=== PATIENT | female | born 1945 | race Caucasian/White ===

== ENCOUNTER 2017-06-23 10:51 | Inpatient (IN) | payer MEDICARE, BC ==
[~2017-06-23] VITALS: Ht 165.1 cm; Wt 120.0 kg
[~2017-06-23 10:51] MED LIST: ALPR-624 PO; ATEN-169 PO; ATOR10TA PO; DOCU-28 PO; DULO-31 PO; FENT-93 TD; HYDR-565 PO; LEVO50TA PO; MELO-100 PO; METF500T PO; MIC100VS VG; MORP30TA PO; MULT-1179 PO; OMEP20CA4 PO; POLY17PO10 PO; PRE5T PO; VITC500T PO; ZIN220C PO
[2017-06-23] MEDS ORDERED: acetaminophen 325mg tablet PO STA (11:35)
[2017-06-23 12:10] LABS: BASOPHILS % (AUTO) 0.1 % (0-1); EOSINOPHILS # (AUTO) 0.2 X10'3 (0-0.9); EOSINOPHILS % (AUTO) 2.4 % (0-6); HEMATOCRIT 32.3 % (35.0-45.0); HEMOGLOBIN 10.3 g/dl (12.0-16.0); LYMPHOCYTES # (AUTO) 0.9 X10'3 (1.1-4.8); LYMPHOCYTES % (AUTO) 11.1 % (21-51); MEAN CORPUSCULAR HEMOGLOBIN 26.7 PG (27.0-31.0); MEAN CORPUSCULAR VOLUME 83.4 FL (78-98); MEAN PLATELET VOLUME 7.2 FL (7.4-10.4); MONOCYTES # (AUTO) 0.9 X10'3 (0-0.9); MONOCYTES % (AUTO) 10.6 % (2-12); NEUTROPHILS # (AUTO) 6.1 X10'3 (1.8-7.7); NEUTROPHILS % (AUTO) 75.8 % (42-75); PLATELET COUNT 364 X10'3 (140-440); RED BLOOD COUNT 3.87 X10'6 (4.20-5.60); RED CELL DISTRIBUTION WIDTH 18.4 % (11.5-14.5); WHITE BLOOD COUNT 8.1 X10'3 (4.5-11.0)
[2017-06-23 12:21] LABS: INR 0.9 INR; PARTIAL THROMBOPLASTIN TIME 27 SECONDS (22-32); PROTHROMBIN TIME 9.8 SECONDS (9.0-12.0)
[2017-06-23 12:38] LABS: ALANINE AMINOTRANSFERASE 25 U/L (12-78); ALBUMIN 2.7 G/DL (3.4-5.0); ALBUMIN/GLOBULIN RATIO 0.5 (1.1-1.5); ALKALINE PHOSPHATASE 109 IU/L (46-116); ANION GAP 9 (8-16); ASPARTATE AMINO TRANSFERASE 15 U/L (10-37); BILIRUBIN,TOTAL 0.3 MG/DL (0.1-1.0); BLOOD UREA NITROGEN 33 MG/DL (7-18); BUN/CREATININE RATIO 30.8 (6.6-38.0); CALCIUM 10.1 MG/DL (8.5-10.1); CHLORIDE 103 MMOL/L (99-107); CREATININE 1.07 MG/DL (0.40-0.90); GLUCOSE 169 MG/DL (70-104); MAGNESIUM 2.3 MG/DL (1.5-2.4); POTASSIUM 4.7 MMOL/L (3.5-5.1); SODIUM 139 MMOL/L (135-145); eGFR 50 ML/MIN
[2017-06-23 12:59] LABS: CLARITY,URINE TURBID (Clear); COLOR,URINE YELLOW (Yellow); GLUCOSE, URINE NEGATIVE (Neg); KETONES,URINE NEGATIVE (Neg); LEUKOCYTE ESTERASE ,URINE LARGE (Neg); NITRITES, URINE NEGATIVE (Neg); OCCULT BLOOD,URINE LARGE (Neg); PH,URINE 6.5 (4.8-8.0); PROTEIN,URINE 100 mg/dl (Neg); UROBILINOGEN,URINE 0.2 E.U/dL (0.2-1.0)
[2017-06-23 13:05] LABS: UA COLLECTION TYPE STRAIGHT CATH
[2017-06-23] MEDS ORDERED: magnesium Cl slow-release 64mg tablet PO PRN (13:05)
[2017-06-23] MEDS ORDERED: mag hydrox/Alum hydrox/simeth 30ml oral suspension PO PRN (13:05)
[2017-06-23] MEDS ORDERED: magnesium hydroxide 30ml (MOM) UD suspension PO PRN (13:05)
[2017-06-23] MEDS ORDERED: glucagon, human recombinant 1mg kit SUBCUT PRN (13:05)
[2017-06-23] MEDS ORDERED: normal saline 1000ML IV soln IV ONE (13:05)
[2017-06-23] MEDS ORDERED: MESSAGE TO PHARMACY PO ONE (13:05)
[2017-06-23] MEDS ORDERED: acetaminophen 325mg tablet PO PRN (13:05)
[2017-06-23] MEDS ORDERED: HYDROcodone/acetaminophen 5mg/325mg tablet PO PRN (13:05)
[2017-06-23] MEDS ORDERED: potassium Cl 40MEQ/NS 500ml 500 ML IV PRN ×2 (13:05)
[2017-06-23] MEDS ORDERED: magnesium 4gm in 100ml NS 100 ML IV PRN (13:05)
[2017-06-23] MEDS ORDERED: magnesium 2GM in 50ml NS 50 ML IV PRN (13:05)
[2017-06-23] MEDS ORDERED: CefTRIAXone 2gm/D5W 50ml 50 ML IV ONE (13:05)
[2017-06-23] MEDS ORDERED: potassium Cl 20 mEq SR tablet PO PRN ×2 (13:05)
[2017-06-23] MEDS ORDERED: morphine 4 MG/ML inj SYRINge IV PRN (13:05)
[2017-06-23] MEDS ORDERED: dextrose 50%-water 50ml dispensing syringe IV PRN ×2 (13:05)
[2017-06-23] MEDS ORDERED: dextrose ORAL solution 15 GM/59 ML bottle PO PRN ×2 (13:05)
[2017-06-23 13:06] LABS: BACTERIA,URINE 2+ /HPF (Neg); RBC,URINE 50-100 /HPF (0-2); SQUAMOUS EPITHELIAL CELL,UR NONE SEEN /LPF (FEW); WBC CLUMPS,URINE MANY /HPF (NEGATIVE); WBC,URINE TNTC /HPF (0-4)
[2017-06-23] MEDS: normal saline 1000ml 1,000 ML IV SCH (15:21)
[2017-06-23] MEDS: HYDROcodone/acetaminophen 10/325mg tab PO PRN (15:23)
[2017-06-23] MEDS: docusate sod 100mg capsule PO SCH (20:24)
[2017-06-23] MEDS: duloxetine 30mg CAPSULE.DR PO SCH (20:24)
[2017-06-23] MEDS: zinc sulfate 220mg capsule PO SCH (20:24)
[2017-06-23] MEDS: insulin glargine (Lantus) pen - multi-dose SQ SCH (21:00)
[2017-06-24] MEDS: normal saline 1000ml 1,000 ML IV SCH ×2 (02:33→15:44)
[2017-06-24 06:15] LABS: BASOPHILS % (AUTO) 0.2 % (0-1); EOSINOPHILS # (AUTO) 0.1 X10'3 (0-0.9); EOSINOPHILS % (AUTO) 1.3 % (0-6); HEMOGLOBIN 9.7 g/dl (12.0-16.0); LYMPHOCYTES # (AUTO) 1.1 X10'3 (1.1-4.8); LYMPHOCYTES % (AUTO) 12.2 % (21-51); MEAN CORPUSCULAR HEMOGLOBIN 26.8 PG (27.0-31.0); MEAN CORPUSCULAR HGB CONC 32.5 % (33.0-36.5); MEAN CORPUSCULAR VOLUME 82.6 FL (78-98); MEAN PLATELET VOLUME 7.5 FL (7.4-10.4); MONOCYTES # (AUTO) 1.3 X10'3 (0-0.9); MONOCYTES % (AUTO) 14.9 % (2-12); NEUTROPHILS # (AUTO) 6.2 X10'3 (1.8-7.7); NEUTROPHILS % (AUTO) 71.4 % (42-75); PLATELET COUNT 303 X10'3 (140-440); RED BLOOD COUNT 3.63 X10'6 (4.20-5.60); RED CELL DISTRIBUTION WIDTH 18.5 % (11.5-14.5); WHITE BLOOD COUNT 8.7 X10'3 (4.5-11.0)
[2017-06-24 06:26] LABS: ALBUMIN 2.3 G/DL (3.4-5.0); ANION GAP 10 (8-16); BLOOD UREA NITROGEN 27 MG/DL (7-18); BUN/CREATININE RATIO 27.6 (6.6-38.0); CALCIUM 9.9 MG/DL (8.5-10.1); CHLORIDE 108 MMOL/L (99-107); CREATININE 0.98 MG/DL (0.40-0.90); GLUCOSE 154 MG/DL (70-104); MAGNESIUM 2.1 MG/DL (1.5-2.4); POTASSIUM 4.8 MMOL/L (3.5-5.1); SODIUM 143 MMOL/L (135-145); TOTAL CARBON DIOXIDE 25.5 MMOL/L (24-32); eGFR 56 ML/MIN
[2017-06-24 07:37] VITALS: BP 142/75
[2017-06-24] MEDS ORDERED: enoxaparin 30mg/0.3ml syringe SUBCUT SCH (08:00)
[2017-06-24] MEDS: K and/or MAG REPLACEMENT MC SCH (08:00)
[2017-06-24] MEDS: atenolol 50mg tablet PO SCH (08:23)
[2017-06-24] MEDS: CefTRIAXone/D5W-Rocephin 1gm 50 ML IV SCH (08:23)
[2017-06-24] MEDS: multivitamins, therapeutics tablet PO SCH (08:24)
[2017-06-24] MEDS: pantoprazole 40mg Tablet.DR PO SCH (08:24)
[2017-06-24] MEDS: atorvastatin 10mg tablet PO SCH (08:24)
[2017-06-24] MEDS: duloxetine 30mg CAPSULE.DR PO SCH ×2 (08:24→20:30)
[2017-06-24] MEDS: ascorbic acid 500mg tablet PO SCH (08:24)
[2017-06-24] MEDS: docusate sod 100mg capsule PO SCH ×2 (08:24→20:29)
[2017-06-24] MEDS: levoTHYROXINE 100mcg tablet PO SCH (08:30)
[2017-06-24] MEDS: predniSONE 5mg tablet PO SCH (09:12)
[2017-06-24] MEDS: zinc sulfate 220mg capsule PO SCH ×2 (09:12→20:30)
[2017-06-24] MEDS ORDERED: fentaNYL 100MCG/hour patch.TD72 TD SCH (10:57)
[2017-06-24] MEDS: HYDROcodone/acetaminophen 10/325mg tab PO PRN ×2 (13:00→18:53)
[2017-06-24] MEDS ORDERED: TRAZ-146 (15:12)
[2017-06-24] MEDS ORDERED: CRAN200C PO (15:12)
[2017-06-24] MEDS ORDERED: MORP15TA (15:12)
[2017-06-24] MEDS ORDERED: ERGO400C (15:14)
[2017-06-24] MEDS: insulin Lispro (HumaLOG) vial - multi-dose SQ SCH (19:35)
[2017-06-24 20:00] VITALS: BP 150/76
[2017-06-24] MEDS: lactobacillus rhamnosus 10,000 MMU CELLS/CAPSULE PO SCH (20:29)
[2017-06-24] MEDS: insulin glargine (Lantus) pen - multi-dose SQ SCH (20:42)
[2017-06-25] VITALS: BP 144/67
[2017-06-25] MEDS: HYDROcodone/acetaminophen 10/325mg tab PO PRN ×3 (01:20→20:28)
[2017-06-25] MEDS: ondansetron/PF 4mg/2ml inj IV PRN ×2 (01:20→21:42)
[2017-06-25] MEDS: normal saline 1000ml 1,000 ML IV SCH (03:07)
[2017-06-25 04:45] LABS: BASOPHILS % (AUTO) 0.3 % (0-1); EOSINOPHILS # (AUTO) 0.1 X10'3 (0-0.9); EOSINOPHILS % (AUTO) 1.2 % (0-6); HEMATOCRIT 26.5 % (35.0-45.0); HEMOGLOBIN 8.6 g/dl (12.0-16.0); LYMPHOCYTES # (AUTO) 1.1 X10'3 (1.1-4.8); LYMPHOCYTES % (AUTO) 12.7 % (21-51); MEAN CORPUSCULAR HEMOGLOBIN 26.6 PG (27.0-31.0); MEAN CORPUSCULAR HGB CONC 32.5 % (33.0-36.5); MEAN CORPUSCULAR VOLUME 81.8 FL (78-98); MEAN PLATELET VOLUME 7.3 FL (7.4-10.4); MONOCYTES # (AUTO) 1.1 X10'3 (0-0.9); MONOCYTES % (AUTO) 12.5 % (2-12); NEUTROPHILS # (AUTO) 6.4 X10'3 (1.8-7.7); NEUTROPHILS % (AUTO) 73.3 % (42-75); PLATELET COUNT 265 X10'3 (140-440); RED BLOOD COUNT 3.24 X10'6 (4.20-5.60); WHITE BLOOD COUNT 8.7 X10'3 (4.5-11.0)
[2017-06-25 05:07] LABS: ALBUMIN 2.1 G/DL (3.4-5.0); ANION GAP 8 (8-16); BLOOD UREA NITROGEN 19 MG/DL (7-18); BUN/CREATININE RATIO 21.8 (6.6-38.0); CALCIUM 9.4 MG/DL (8.5-10.1); CHLORIDE 108 MMOL/L (99-107); CREATININE 0.87 MG/DL (0.40-0.90); GLUCOSE 170 MG/DL (70-104); MAGNESIUM 1.7 MG/DL (1.5-2.4); SODIUM 141 MMOL/L (135-145); TOTAL CARBON DIOXIDE 25.3 MMOL/L (24-32); eGFR 64 ML/MIN
[2017-06-25] MEDS: levoTHYROXINE 100mcg tablet PO SCH (07:00)
[2017-06-25] MEDS: pantoprazole 40mg Tablet.DR PO SCH (07:30)
[2017-06-25 08:00] VITALS: BP 123/59
[2017-06-25] MEDS: K and/or MAG REPLACEMENT MC SCH (08:00)
[2017-06-25] MEDS ORDERED: enoxaparin 40mg/0.4ml syringe SUBCUT SCH (08:00)
[2017-06-25] MEDS: docusate sod 100mg capsule PO SCH ×2 (08:00→20:25)
[2017-06-25] MEDS: zinc sulfate 220mg capsule PO SCH ×2 (08:00→20:25)
[2017-06-25] MEDS: atenolol 50mg tablet PO SCH (08:00)
[2017-06-25] MEDS: atorvastatin 10mg tablet PO SCH (08:00)
[2017-06-25] MEDS: CefTRIAXone/D5W-Rocephin 1gm 50 ML IV SCH (08:00)
[2017-06-25] MEDS: duloxetine 30mg CAPSULE.DR PO SCH ×2 (08:00→20:25)
[2017-06-25] MEDS: multivitamins, therapeutics tablet PO SCH (08:00)
[2017-06-25] MEDS: lactobacillus rhamnosus 10,000 MMU CELLS/CAPSULE PO SCH ×2 (08:00→20:25)
[2017-06-25] MEDS: ascorbic acid 500mg tablet PO SCH (08:00)
[2017-06-25] MEDS ORDERED: pantoprazole 40 MG vial IV SCH (08:00)
[2017-06-25] MEDS: predniSONE 5mg tablet PO SCH (08:00)
[2017-06-25 11:00] VITALS: BP 121/59
[2017-06-25] MEDS: insulin Lispro (HumaLOG) vial - multi-dose SQ SCH (13:18)
[2017-06-25] MEDS ORDERED: iohexol 300mg/ml 100ml inj. ONE (14:15)
[2017-06-25 20:00] VITALS: BP 139/59
[2017-06-25] MEDS: insulin glargine (Lantus) pen - multi-dose SQ SCH (21:54)
[2017-06-26] VITALS: BP 144/56
[2017-06-26] MEDS: HYDROcodone/acetaminophen 10/325mg tab PO PRN ×3 (02:18→12:05)
[2017-06-26 05:13] LABS: BASOPHILS % (AUTO) 0.3 % (0-1); EOSINOPHILS # (AUTO) 0.2 X10'3 (0-0.9); EOSINOPHILS % (AUTO) 1.7 % (0-6); HEMATOCRIT 26.5 % (35.0-45.0); HEMOGLOBIN 8.4 g/dl (12.0-16.0); LYMPHOCYTES # (AUTO) 1.8 X10'3 (1.1-4.8); LYMPHOCYTES % (AUTO) 19.4 % (21-51); MEAN CORPUSCULAR HGB CONC 31.7 % (33.0-36.5); MEAN CORPUSCULAR VOLUME 82.1 FL (78-98); MEAN PLATELET VOLUME 7.2 FL (7.4-10.4); MONOCYTES # (AUTO) 1.2 X10'3 (0-0.9); MONOCYTES % (AUTO) 13.1 % (2-12); NEUTROPHILS % (AUTO) 65.5 % (42-75); PLATELET COUNT 275 X10'3 (140-440); RED BLOOD COUNT 3.23 X10'6 (4.20-5.60); RED CELL DISTRIBUTION WIDTH 18.3 % (11.5-14.5); WHITE BLOOD COUNT 9.1 X10'3 (4.5-11.0)
[2017-06-26 05:24] LABS: ALBUMIN 2.1 G/DL (3.4-5.0); ANION GAP 7 (8-16); BLOOD UREA NITROGEN 19 MG/DL (7-18); BUN/CREATININE RATIO 21.1 (6.6-38.0); CALCIUM 9.4 MG/DL (8.5-10.1); CHLORIDE 106 MMOL/L (99-107); GLUCOSE 140 MG/DL (70-104); MAGNESIUM 1.9 MG/DL (1.5-2.4); POTASSIUM 4.2 MMOL/L (3.5-5.1); SODIUM 140 MMOL/L (135-145); TOTAL CARBON DIOXIDE 27.3 MMOL/L (24-32); eGFR 61 ML/MIN
[2017-06-26] MEDS ORDERED: atenolol 25mg tablet PO SCH (07:22)
[2017-06-26] MEDS: CefTRIAXone/D5W-Rocephin 1gm 50 ML IV SCH (07:29)
[2017-06-26] MEDS: predniSONE 5mg tablet PO SCH (07:32)
[2017-06-26] MEDS: multivitamins, therapeutics tablet PO SCH (07:33)
[2017-06-26] MEDS: lactobacillus rhamnosus 10,000 MMU CELLS/CAPSULE PO SCH (07:33)
[2017-06-26] MEDS: docusate sod 100mg capsule PO SCH (07:33)
[2017-06-26] MEDS: duloxetine 30mg CAPSULE.DR PO SCH (07:33)
[2017-06-26] MEDS: levoTHYROXINE 100mcg tablet PO SCH (07:33)
[2017-06-26] MEDS: atorvastatin 10mg tablet PO SCH (07:34)
[2017-06-26] MEDS: pantoprazole 40mg Tablet.DR PO SCH (07:34)
[2017-06-26] MEDS: zinc sulfate 220mg capsule PO SCH (07:34)
[2017-06-26] MEDS: ascorbic acid 500mg tablet PO SCH (07:38)
[2017-06-26] MEDS: K and/or MAG REPLACEMENT MC SCH (07:40)
[2017-06-26 08:00] VITALS: BP 144/57
[2017-06-26] MEDS: insulin Lispro (HumaLOG) vial - multi-dose SQ SCH ×2 (08:45→13:18)
[2017-06-26 11:30] VITALS: BP 121/65
[2017-06-26 16:13] LABS: OCCULT BLOOD STOOL NEGATIVE (Neg)
[2017-06-26] MEDS ORDERED: LEVO750T21 PO (16:41)
== END 2017-06-26 16:20 | disposition home health service (06) | DRG 682 ==
LOC: ER 10:51 → ED HOLD 13:05 → EDBEDREQ 06-24 06:37 → SUR 3N 06-24 07:15
PROVIDERS: ADMIT Internal Medicine; ATTEND Nurse Practitioner Family
PROC: BW211ZZ Computerized Tomography (CT Scan) of Abdomen and Pelvis using Low Osmolar Contrast (ICD-10-PCS; principal; 2017-06-25)
DX: N17.0 Acute kidney failure with tubular necrosis (principal); E43 Unspecified severe protein-calorie malnutrition; G92 Toxic encephalopathy; N39.0 Urinary tract infection, site not specified; Z68.41 Body mass index [BMI] 40.0-44.9, adult; I11.0 Hypertensive heart disease with heart failure; M19.90 Unspecified osteoarthritis, unspecified site; K59.00 Constipation, unspecified; M21.372 Foot drop, left foot; M54.9 Dorsalgia, unspecified; E66.01 Morbid (severe) obesity due to excess calories; I50.9 Heart failure, unspecified; G89.4 Chronic pain syndrome; E88.09 Other disorders of plasma-protein metabolism, not elsewhere classified; B95.2 Enterococcus as the cause of diseases classified elsewhere; D64.9 Anemia, unspecified; M79.7 Fibromyalgia; Z90.710 Acquired absence of both cervix and uterus; Z88.1 Allergy status to other antibiotic agents; Z88.0 Allergy status to penicillin; Z88.8 Allergy status to other drugs, medicaments and biological substances; Z85.528 Personal history of other malignant neoplasm of kidney
CPT/HCPCS: 36415; 71045; 74177; 80048; 80053; 81001; 82272; 82948; 83036; 83605; 83735; 84145; 85025; 85610; 85730; 87040; 87070; 87077; 87088; 87186; 93005; 97161; 97530; 99285; A6213; J0696; J1650; J1815; J2270; J2405; J7030; J7512; Q9967

== ENCOUNTER 2018-01-04 08:28 | Inpatient (IN) | payer MEDICARE, BC ==
[~2018-01-04] VITALS: Ht 177.8 cm; Wt 113.6 kg
[~2018-01-04 08:28] MED LIST changes: +CRAN200C PO; +ERGO400C; -FENT-93 TD; +FENT1PAT13 TD; +HYDR-4353 PO; -HYDR-565 PO; +MORP15TA PO; -MORP30TA PO; +TRAZ-219
[2018-01-04 09:25] LABS: ABG BASE EXCESS 5.2 mmol/L (-2.0-3.0); ABG HCO3 34.5 mmol/L (22.0-26.0); ABG OXYGEN SATURATION 91.5 % (95-98); ABG PCO2 (T) 81.8 mmHg (32.0-45.0); ABG PH (T) 7.243 (7.350-7.450); ALLEN'S TEST Positive; FCOHb 0.9 % (0.5-1.5); FLOW 2 L/min; FMetHb 0.2 % (0.3-1.12); FO2Hb 90.5 % (94-100); TOTAL HEMOGLOBIN 10.7 G/dl (12.0-16.0)
[2018-01-04 09:29] LABS: BASOPHILS # (AUTO) 0.1 X10'3 (0-0.2); BASOPHILS % (AUTO) 0.6 % (0-1); EOSINOPHILS # (AUTO) 0.4 X10'3 (0-0.9); EOSINOPHILS % (AUTO) 3.8 % (0-6); HEMATOCRIT 32.4 % (35.0-45.0); LYMPHOCYTES # (AUTO) 2.5 X10'3 (1.1-4.8); LYMPHOCYTES % (AUTO) 24.7 % (21-51); MEAN CORPUSCULAR HEMOGLOBIN 23.1 PG (27.0-31.0); MEAN CORPUSCULAR VOLUME 74.7 FL (78-98); MEAN PLATELET VOLUME 7.7 FL (7.4-10.4); MONOCYTES # (AUTO) 0.6 X10'3 (0-0.9); MONOCYTES % (AUTO) 6.3 % (2-12); NEUTROPHILS # (AUTO) 6.7 X10'3 (1.8-7.7); NEUTROPHILS % (AUTO) 64.6 % (42-75); PLATELET COUNT 404 X10'3 (140-440); RED BLOOD COUNT 4.34 X10'6 (4.20-5.60); RED CELL DISTRIBUTION WIDTH 17.7 % (11.5-14.5); WHITE BLOOD COUNT 10.3 X10'3 (4.5-11.0)
[2018-01-04 09:39] LABS: PARTIAL THROMBOPLASTIN TIME 25 SECONDS (22-32)
[2018-01-04 09:44] LABS: ALANINE AMINOTRANSFERASE 16 U/L (12-78); ALBUMIN/GLOBULIN RATIO 0.8 (1.1-1.5); ALKALINE PHOSPHATASE 89 IU/L (46-116); ANION GAP 3 (8-16); ASPARTATE AMINO TRANSFERASE 14 U/L (10-37); BILIRUBIN,TOTAL 0.4 MG/DL (0.1-1.0); BLOOD UREA NITROGEN 22 MG/DL (7-18); BUN/CREATININE RATIO 33.8 (6.6-38.0); CALCIUM 9.2 MG/DL (8.5-10.1); CHLORIDE 103 MMOL/L (99-107); CREATININE 0.65 MG/DL (0.40-0.90); GLUCOSE 146 MG/DL (70-104); POTASSIUM 4.7 MMOL/L (3.5-5.1); SODIUM 142 MMOL/L (135-145); TOTAL CARBON DIOXIDE 36.2 MMOL/L (24-32); TOTAL PROTEIN 6.9 G/DL (6.4-8.2); eGFR 89 ML/MIN
[2018-01-04] MEDS ORDERED: bisacodyl 10mg suppository rectal RC PRN (12:15)
[2018-01-04] MEDS ORDERED: potassium Cl 20 mEq SR tablet PO PRN ×2 (12:15)
[2018-01-04] MEDS ORDERED: acetaminophen 325mg tablet PO PRN ×2 (12:15→19:45)
[2018-01-04] MEDS ORDERED: magnesium Cl slow-release 64mg tablet PO PRN (12:15)
[2018-01-04] MEDS ORDERED: potassium Cl 40MEQ/NS 500ml 500 ML IV PRN ×2 (12:15)
[2018-01-04] MEDS ORDERED: mag hydrox/Alum hydrox/simeth 30ml oral suspension PO PRN (12:15)
[2018-01-04] MEDS ORDERED: magnesium 1gm/100ml D5W IVPB 100 ML IV PRN (12:15)
[2018-01-04] MEDS ORDERED: ondansetron/PF 4mg/2ml inj IV PRN (12:15)
[2018-01-04] MEDS ORDERED: magnesium 4gm in 100ml NS 100 ML IV PRN (12:15)
[2018-01-04] MEDS ORDERED: magnesium hydroxide 30ml (MOM) UD suspension PO PRN (12:15)
[2018-01-04] MEDS ORDERED: dextrose ORAL solution 15 GM/59 ML bottle PO PRN ×2 (12:20)
[2018-01-04] MEDS ORDERED: MESSAGE TO PHARMACY PO ONE (12:20)
[2018-01-04] MEDS ORDERED: dextrose 50%-water 50ml dispensing syringe IV PRN ×2 (12:20)
[2018-01-04] MEDS ORDERED: glucagon, human recombinant 1mg kit SUBCUT PRN (12:20)
[2018-01-04] MEDS ORDERED: insulin Lispro (HumaLOG) vial - multi-dose SQ SCH (12:20)
[2018-01-04 13:02] LABS: HEMOGLOBIN A1C 7.1 % (4.5-6.2)
[2018-01-04 13:15] LABS: ABG HCO3 30.9 mmol/L (22.0-26.0); ABG OXYGEN SATURATION 82.6 % (95-98); ABG PCO2 (T) 73.5 mmHg (32.0-45.0); ABG PH (T) 7.241 (7.350-7.450); FCOHb 1.1 % (0.5-1.5); FMetHb 0.1 % (0.3-1.12); FO2Hb 81.6 % (94-100); TOTAL HEMOGLOBIN 10.9 G/dl (12.0-16.0)
[2018-01-04 14:10] VITALS: BP 142/50
[2018-01-04] MEDS: ipratropium/albuterol 3ml nebule NEB SCH ×3 (14:27→23:00)
[2018-01-04] MEDS ORDERED: ALPRAZolam 0.5mg tablet PO PRN (14:40)
[2018-01-04] MEDS: sodium chloride 0.45% 1,000 ML IV SCH (14:54)
[2018-01-04] MEDS: methylPREDNISolone sod succ 125mg/2ml vial IV SCH ×2 (14:57→20:39)
[2018-01-04 15:55] LABS: ABG BASE EXCESS 5.6 mmol/L (-2.0-3.0); ABG HCO3 33.8 mmol/L (22.0-26.0); ABG OXYGEN SATURATION 92.6 % (95-98); ABG PCO2 (T) 71.3 mmHg (32.0-45.0); ABG PH (T) 7.294 (7.350-7.450); ABG PO2 (T) 68.6 mmHg (83-108); FCOHb 0.9 % (0.5-1.5); FO2Hb 91.8 % (94-100); MINUTE VOLUME 26 L/min; RESPIRATORY RATE 18 b/min; RESPIRATORY RATE (OBSERVED) 19 b/min; TIDAL VOLUME 1280 mL; TOTAL HEMOGLOBIN 10.5 G/dl (12.0-16.0)
[2018-01-04 19:00] VITALS: BP 150/67
[2018-01-04] MEDS ORDERED: HYDROcodone/acetaminophen 10/325mg tab PO PRN (19:55)
[2018-01-04] MEDS ORDERED: morphine 2 MG/ML inj. syringe IV PRN (19:55)
[2018-01-04] MEDS: docusate sod 100mg capsule PO SCH ×2 (20:00→20:40)
[2018-01-04] MEDS ORDERED: fentaNYL 100MCG/hour patch.TD72 TD SCH (20:00)
[2018-01-04] MEDS: naproxen 500mg tablet PO SCH (20:40)
[2018-01-04] MEDS: heparin, porcine 5000 units/ml vial SQ SCH (20:40)
[2018-01-04] MEDS: duloxetine 30mg CAPSULE.DR PO SCH (20:40)
[2018-01-04] MEDS: zinc sulfate 220mg capsule PO SCH (20:40)
[2018-01-04] MEDS ORDERED: insulin glargine (Lantus) pen - multi-dose SQ SCH (21:00)
[2018-01-05] MEDS: sodium chloride 0.45% 1,000 ML IV SCH ×2 (00:43→13:13)
[2018-01-05] MEDS ORDERED: LORazepam 2 mg/ml vial IV PRN (01:40)
[2018-01-05] MEDS: methylPREDNISolone sod succ 125mg/2ml vial IV SCH ×2 (02:00→08:00)
[2018-01-05] MEDS: ipratropium/albuterol 3ml nebule NEB SCH ×3 (03:00→11:00)
[2018-01-05 06:47] LABS: ALANINE AMINOTRANSFERASE 12 U/L (12-78); ALBUMIN/GLOBULIN RATIO 0.8 (1.1-1.5); ALKALINE PHOSPHATASE 81 IU/L (46-116); ANION GAP 5 (8-16); ASPARTATE AMINO TRANSFERASE 15 U/L (10-37); BILIRUBIN,TOTAL 0.5 MG/DL (0.1-1.0); BLOOD UREA NITROGEN 25 MG/DL (7-18); BUN/CREATININE RATIO 28.7 (6.6-38.0); CALCIUM 9.5 MG/DL (8.5-10.1); CHLORIDE 104 MMOL/L (99-107); CREATININE 0.87 MG/DL (0.40-0.90); GLUCOSE 203 MG/DL (70-104); MAGNESIUM 1.9 MG/DL (1.5-2.4); POTASSIUM 4.5 MMOL/L (3.5-5.1); SODIUM 144 MMOL/L (135-145); TOTAL CARBON DIOXIDE 34.9 MMOL/L (24-32); TOTAL PROTEIN 6.8 G/DL (6.4-8.2); eGFR 64 ML/MIN
[2018-01-05 07:00] VITALS: BP 140/71
[2018-01-05] MEDS ORDERED: pantoprazole 40mg Tablet.DR PO SCH (07:30)
[2018-01-05] MEDS: heparin, porcine 5000 units/ml vial SQ SCH (08:00)
[2018-01-05] MEDS: zinc sulfate 220mg capsule PO SCH (08:00)
[2018-01-05] MEDS: docusate sod 100mg capsule PO SCH ×2 (08:00→08:59)
[2018-01-05] MEDS ORDERED: atenolol 25mg tablet PO SCH (08:00)
[2018-01-05] MEDS ORDERED: atorvastatin 20mg tablet PO SCH (08:00)
[2018-01-05] MEDS ORDERED: multivitamins, therapeutics tablet PO SCH (08:00)
[2018-01-05] MEDS ORDERED: levoTHYROXINE 100mcg tablet PO SCH (08:00)
[2018-01-05] MEDS ORDERED: K and/or MAG REPLACEMENT MC SCH (08:00)
[2018-01-05] MEDS ORDERED: ascorbic acid 500mg tablet PO SCH (08:00)
[2018-01-05] MEDS: naproxen 500mg tablet PO SCH (08:59)
[2018-01-05] MEDS: duloxetine 30mg CAPSULE.DR PO SCH (08:59)
[2018-01-05 10:21] LABS: ABG BASE EXCESS 6.2 mmol/L (-2.0-3.0); ABG HCO3 31.9 mmol/L (22.0-26.0); ABG OXYGEN SATURATION 94.3 % (95-98); ABG PCO2 (T) 52.3 mmHg (32.0-45.0); ABG PH (T) 7.403 (7.350-7.450); FCOHb 0.3 % (0.5-1.5); FLOW 2 L/min; FMetHb 0.2 % (0.3-1.12); FO2Hb 93.8 % (94-100); TOTAL HEMOGLOBIN 9.7 G/dl (12.0-16.0)
[2018-01-05 11:00] VITALS: BP 147/59
== END 2018-01-05 13:30 | disposition home health service (06) | DRG 189 ==
LOC: ER 08:29 → ED HOLD 12:13 → PCU 3S 14:12
PROVIDERS: ADMIT Internal Medicine; ATTEND Internal Medicine
PROC: 5A09357 Assistance with Respiratory Ventilation, Less than 24 Consecutive Hours, Continuous Positive Airway Pressure (ICD-10-PCS; principal; 2018-01-04)
DX: J96.22 Acute and chronic respiratory failure with hypercapnia (principal); M48.00 Spinal stenosis, site unspecified; G83.14 Monoplegia of lower limb affecting left nondominant side; F41.9 Anxiety disorder, unspecified; F32.9 Major depressive disorder, single episode, unspecified; E11.9 Type 2 diabetes mellitus without complications; I11.0 Hypertensive heart disease with heart failure; I50.9 Heart failure, unspecified; E78.5 Hyperlipidemia, unspecified; E03.9 Hypothyroidism, unspecified; G47.33 Obstructive sleep apnea (adult) (pediatric); G89.4 Chronic pain syndrome; E86.0 Dehydration; E66.01 Morbid (severe) obesity due to excess calories; Z74.01 Bed confinement status; Z90.710 Acquired absence of both cervix and uterus; Z88.0 Allergy status to penicillin; Z88.8 Allergy status to other drugs, medicaments and biological substances; Z79.52 Long term (current) use of systemic steroids; Z79.899 Other long term (current) drug therapy; Z85.528 Personal history of other malignant neoplasm of kidney; Z68.35 Body mass index [BMI] 35.0-35.9, adult
CPT/HCPCS: 36415; 36600; 71045; 80053; 82803; 83036; 83735; 83880; 84443; 84484; 85018; 85025; 85610; 85730; 93005; 94640; 94660; 94760; 99285; J1644; J1815; J2060; J2270; J2930

== ENCOUNTER 2018-03-05 12:30 | Inpatient (IN) | payer MEDICARE, BC ==
[2018-03-04 19:45] VITALS: BP 118/54
[~2018-03-05] VITALS: Ht 177.8 cm; Wt 110.0 kg
[~2018-03-05 12:30] MED LIST changes: -HYDR-4353 PO; -MIC100VS VG; -TRAZ-219
[2018-03-05] MEDS ORDERED: normal saline 1000ML IV soln IVB ONE (12:45)
[2018-03-05 13:16] LABS: ABG BASE EXCESS -4.2 mmol/L (-2.0-3.0); ABG OXYGEN SATURATION 96.8 % (95-98); ABG PCO2 (T) 68.1 mmHg (32.0-45.0); ABG PH (T) 7.182 (7.350-7.450); ABG PO2 (T) 103.3 mmHg (83-108); ALLEN'S TEST Positive; FCOHb 1.6 % (0.5-1.5); FLOW 4 L/min; FMetHb 0.1 % (0.3-1.12); FO2Hb 95.2 % (94-100); TOTAL HEMOGLOBIN 11.2 G/dl (12.0-16.0)
[2018-03-05 13:21] LABS: BASOPHILS % (AUTO) 0.4 % (0-1); EOSINOPHILS % (AUTO) 0.2 % (0-6); HEMATOCRIT 34.9 % (35.0-45.0); HEMOGLOBIN 10.5 g/dl (12.0-16.0); LYMPHOCYTES # (AUTO) 1.1 X10'3 (1.1-4.8); LYMPHOCYTES % (AUTO) 9.7 % (21-51); MEAN CORPUSCULAR HEMOGLOBIN 22.4 PG (27.0-31.0); MEAN CORPUSCULAR HGB CONC 30.1 % (33.0-36.5); MEAN CORPUSCULAR VOLUME 74.4 FL (78-98); MEAN PLATELET VOLUME 7.9 FL (7.4-10.4); MONOCYTES # (AUTO) 0.9 X10'3 (0-0.9); MONOCYTES % (AUTO) 8.2 % (2-12); NEUTROPHILS % (AUTO) 81.5 % (42-75); PLATELET COUNT 573 X10'3 (140-440); RED BLOOD COUNT 4.69 X10'6 (4.20-5.60); RED CELL DISTRIBUTION WIDTH 22.1 % (11.5-14.5)
[2018-03-05 13:32] LABS: ALANINE AMINOTRANSFERASE 23 U/L (12-78); ALBUMIN 2.3 G/DL (3.4-5.0); ALBUMIN/GLOBULIN RATIO 0.4 (1.1-1.5); ANION GAP 9 (8-16); ASPARTATE AMINO TRANSFERASE 19 U/L (10-37); BILIRUBIN,TOTAL 0.3 MG/DL (0.1-1.0); BLOOD UREA NITROGEN 62 MG/DL (7-18); BUN/CREATININE RATIO 44.6 (6.6-38.0); CALCIUM 10.6 MG/DL (8.5-10.1); CHLORIDE 102 MMOL/L (99-107); CREATININE 1.39 MG/DL (0.40-0.90); GLUCOSE 192 MG/DL (70-104); POTASSIUM 5.9 MMOL/L (3.5-5.1); SODIUM 136 MMOL/L (135-145); TOTAL CARBON DIOXIDE 25.1 MMOL/L (24-32); TOTAL PROTEIN 7.7 G/DL (6.4-8.2); eGFR 37 ML/MIN
[2018-03-05 13:33] LABS: ALKALINE PHOSPHATASE 150 IU/L (46-116)
[2018-03-05 13:35] LABS: LACTIC SEPSIS 0.9 MMOL/L (0.4-2.0)
[2018-03-05 13:36] LABS: TROPONIN I < 0.04 NG/ML (0.0-0.05)
[2018-03-05 13:37] LABS: ETHANOL < 0.010 GM/DL (0.0-0.010)
[2018-03-05 13:38] LABS: PARTIAL THROMBOPLASTIN TIME 34 SECONDS (22-32); PROTHROMBIN TIME 9.7 SECONDS (9.0-12.0)
[2018-03-05] MEDS ORDERED: normal saline 1000ml 1,000 ML IV ONE ×2 (13:45→16:55)
[2018-03-05 15:14] LABS: ANISOCYTOSIS 3+; PLATELET ESTIMATE INCREASED; TOTAL CELLS COUNTED 100
[2018-03-05 15:15] LABS: POLYCHROMASIA FEW
[2018-03-05] MEDS ORDERED: CefTRIAXone 2gm/D5W 50ml 50 ML IV ONE (15:50)
[2018-03-05 15:51] LABS: ABG BASE EXCESS -4.7 mmol/L (-2.0-3.0); ABG OXYGEN SATURATION 94.8 % (95-98); ABG PH (T) 7.198 (7.350-7.450); ABG PO2 (T) 85.5 mmHg (83-108); ALLEN'S TEST Positive; FCOHb 1.3 % (0.5-1.5); FO2Hb 93.6 % (94-100); TOTAL HEMOGLOBIN 10.9 G/dl (12.0-16.0)
[2018-03-05 16:04] LABS: CLARITY,URINE TURBID (Clear); COLOR,URINE STRAW (Yellow); GLUCOSE, URINE NEGATIVE (Neg); KETONES,URINE NEGATIVE (Neg); LEUKOCYTE ESTERASE ,URINE LARGE (Neg); NITRITES, URINE NEGATIVE (Neg); OCCULT BLOOD,URINE LARGE (Neg); PH,URINE 6.5 (4.8-8.0); PROTEIN,URINE 100 mg/dl (Neg); UROBILINOGEN,URINE 0.2 E.U/dL (0.2-1.0)
[2018-03-05 16:14] LABS: UA COLLECTION TYPE STRAIGHT CATH
[2018-03-05 16:15] LABS: URINE AMPHETAMINE SCREEN NEGATIVE (Neg); URINE BARBITUATE SCREEN NEGATIVE (Neg); URINE BENZODIAZEPINES SCREEN POSITIVE (Neg); URINE CANNABINOID SCREEN NEGATIVE (Neg); URINE COCAINE SCREEN NEGATIVE (Neg); URINE METHADONE SCREEN NEGATIVE (Neg); URINE OPIATE SCREEN POSITIVE (Neg); URINE PHENCYCLIDINE SCREEN NEGATIVE (Neg)
[2018-03-05 16:16] LABS: BACTERIA,URINE 2+ /HPF (Neg); SQUAMOUS EPITHELIAL CELL,UR NONE SEEN /LPF (FEW); WBC,URINE TNTC /HPF (0-4)
[2018-03-05] MEDS ORDERED: dextrose 50%-water 50ml dispensing syringe IV PRN ×2 (17:05)
[2018-03-05] MEDS ORDERED: potassium Cl 40MEQ/NS 500ml 500 ML IV PRN ×2 (17:05)
[2018-03-05] MEDS ORDERED: magnesium Cl slow-release 64mg tablet PO PRN (17:05)
[2018-03-05] MEDS ORDERED: glucagon, human recombinant 1mg kit SUBCUT PRN (17:05)
[2018-03-05] MEDS ORDERED: potassium Cl 20 mEq SR tablet PO PRN ×2 (17:05)
[2018-03-05] MEDS ORDERED: insulin Lispro (HumaLOG) vial - multi-dose SQ SCH (17:05)
[2018-03-05] MEDS ORDERED: dextrose ORAL solution 15 GM/59 ML bottle PO PRN ×2 (17:05)
[2018-03-05] MEDS ORDERED: MESSAGE TO PHARMACY PO ONE (17:05)
[2018-03-05] MEDS ORDERED: magnesium 4gm in 100ml NS 100 ML IV PRN (17:05)
[2018-03-05 17:34] LABS: HEMOGLOBIN A1C 7.7 % (4.5-6.2)
[2018-03-05] MEDS ORDERED: LEVO50TA PO (19:06)
[2018-03-05] MEDS ORDERED: OMEP20CA4 PO (19:06)
[2018-03-05] MEDS ORDERED: POLY17PO10 PO (19:06)
[2018-03-05 19:45] VITALS: BP 118/54
[2018-03-05] MEDS: normal saline 1000ml 1,000 ML IV SCH (19:52)
[2018-03-05] MEDS: insulin glargine (Lantus) pen - multi-dose SQ SCH (19:53)
[2018-03-05] MEDS: heparin, porcine 5000 units/ml vial SQ SCH (19:53)
[2018-03-05 23:00] VITALS: BP 134/62
[2018-03-06] VITALS (7 sets, daily range): BP systolic 114–155; BP diastolic 52–78
[2018-03-06] MEDS: normal saline 1000ml 1,000 ML IV SCH ×3 (03:04→23:04)
[2018-03-06 04:11] LABS: ABG BASE EXCESS -4.4 mmol/L (-2.0-3.0); ABG HCO3 21.9 mmol/L (22.0-26.0); ABG PH (T) 7.296 (7.350-7.450); ABG PO2 (T) 73.4 mmHg (83-108); ALLEN'S TEST Positive; FMetHb 0.3 % (0.3-1.12); FO2Hb 91.8 % (94-100); MINUTE VOLUME 11 L/min; PATIENT TEMPERATURE 37.1; RESPIRATORY RATE 18 b/min; RESPIRATORY RATE (OBSERVED) 25 b/min; TOTAL HEMOGLOBIN 9.6 G/dl (12.0-16.0)
[2018-03-06 04:22] LABS: BASOPHILS # (AUTO) 0.1 X10'3 (0-0.2); BASOPHILS % (AUTO) 0.8 % (0-1); EOSINOPHILS # (AUTO) 0.1 X10'3 (0-0.9); HEMATOCRIT 31.1 % (35.0-45.0); HEMOGLOBIN 9.3 g/dl (12.0-16.0); LYMPHOCYTES # (AUTO) 0.7 X10'3 (1.1-4.8); LYMPHOCYTES % (AUTO) 8.2 % (21-51); MEAN CORPUSCULAR HEMOGLOBIN 22.3 PG (27.0-31.0); MEAN CORPUSCULAR VOLUME 74.3 FL (78-98); MEAN PLATELET VOLUME 7.6 FL (7.4-10.4); MONOCYTES # (AUTO) 0.7 X10'3 (0-0.9); MONOCYTES % (AUTO) 8.3 % (2-12); NEUTROPHILS # (AUTO) 7.2 X10'3 (1.8-7.7); NEUTROPHILS % (AUTO) 81.7 % (42-75); PLATELET COUNT 455 X10'3 (140-440); RED BLOOD COUNT 4.18 X10'6 (4.20-5.60); RED CELL DISTRIBUTION WIDTH 22.5 % (11.5-14.5); WHITE BLOOD COUNT 8.8 X10'3 (4.5-11.0)
[2018-03-06 04:32] LABS: ANION GAP 8 (8-16); BLOOD UREA NITROGEN 52 MG/DL (7-18); BUN/CREATININE RATIO 40.9 (6.6-38.0); CALCIUM 9.6 MG/DL (8.5-10.1); CHLORIDE 108 MMOL/L (99-107); CREATININE 1.27 MG/DL (0.40-0.90); GLUCOSE 150 MG/DL (70-104); MAGNESIUM 1.9 MG/DL (1.5-2.4); POTASSIUM 4.7 MMOL/L (3.5-5.1); SODIUM 140 MMOL/L (135-145); TOTAL CARBON DIOXIDE 23.6 MMOL/L (24-32); eGFR 41 ML/MIN
[2018-03-06 05:02] LABS: ANISOCYTOSIS 3+; PLATELET ESTIMATE INCREASED
[2018-03-06] MEDS: CefTRIAXone 2gm/D5W 50ml 50 ML IV SCH (07:22)
[2018-03-06] MEDS: heparin, porcine 5000 units/ml vial SQ SCH ×2 (07:23→20:06)
[2018-03-06] MEDS: K and/or MAG REPLACEMENT MC SCH (08:00)
[2018-03-06] MEDS ORDERED: traMADol 50MG tablet PO ONE (11:30)
[2018-03-06] MEDS ORDERED: morphine 2 MG/ML inj. syringe IV ONE (13:45)
[2018-03-06] MEDS ORDERED: MORP15TA PO (16:53)
[2018-03-06] MEDS ORDERED: FENT1PAT13 TD (16:53)
[2018-03-06] MEDS ORDERED: ALPR-624 PO (16:53)
[2018-03-06] MEDS: naproxen 500mg tablet PO SCH (17:37)
[2018-03-06] MEDS: lactobacillus rhamnosus 10,000 MMU CELLS/CAPSULE PO SCH (20:05)
[2018-03-06] MEDS: zinc sulfate 220mg capsule PO SCH (20:06)
[2018-03-06] MEDS: duloxetine 30mg CAPSULE.DR PO SCH (20:07)
[2018-03-06] MEDS: docusate sod 100mg capsule PO SCH (20:08)
[2018-03-06] MEDS: insulin glargine (Lantus) pen - multi-dose SQ SCH (21:00)
[2018-03-06] MEDS: polyethylene glycol 3350 17gm powd pack PO SCH (21:00)
[2018-03-07] MEDS ORDERED: diltiazem 5mg/ml 5ml inj. IV ONE ×2 (01:10→02:20)
[2018-03-07] MEDS: morphine 2 MG/ML inj. syringe IV PRN ×3 (01:53→17:03)
[2018-03-07 02:00] VITALS: BP 132/53
[2018-03-07 06:00] VITALS: BP 127/57
[2018-03-07 06:49] LABS: BASOPHILS % (AUTO) 0.3 % (0-1); EOSINOPHILS # (AUTO) 0.3 X10'3 (0-0.9); EOSINOPHILS % (AUTO) 3.9 % (0-6); HEMATOCRIT 28.1 % (35.0-45.0); HEMOGLOBIN 8.4 g/dl (12.0-16.0); LYMPHOCYTES # (AUTO) 1.5 X10'3 (1.1-4.8); LYMPHOCYTES % (AUTO) 16.9 % (21-51); MEAN CORPUSCULAR HEMOGLOBIN 22.2 PG (27.0-31.0); MEAN CORPUSCULAR HGB CONC 29.8 % (33.0-36.5); MEAN CORPUSCULAR VOLUME 74.4 FL (78-98); MEAN PLATELET VOLUME 7.8 FL (7.4-10.4); MONOCYTES # (AUTO) 0.8 X10'3 (0-0.9); MONOCYTES % (AUTO) 9.7 % (2-12); NEUTROPHILS # (AUTO) 6.1 X10'3 (1.8-7.7); NEUTROPHILS % (AUTO) 69.2 % (42-75); PLATELET COUNT 432 X10'3 (140-440); RED BLOOD COUNT 3.78 X10'6 (4.20-5.60); RED CELL DISTRIBUTION WIDTH 23.5 % (11.5-14.5); WHITE BLOOD COUNT 8.8 X10'3 (4.5-11.0)
[2018-03-07 07:10] LABS: ALBUMIN 1.9 G/DL (3.4-5.0); ANION GAP 10 (8-16); BLOOD UREA NITROGEN 35 MG/DL (7-18); BUN/CREATININE RATIO 36.1 (6.6-38.0); CALCIUM 9.7 MG/DL (8.5-10.1); CHLORIDE 109 MMOL/L (99-107); CREATININE 0.97 MG/DL (0.40-0.90); GLUCOSE 121 MG/DL (70-104); MAGNESIUM 1.8 MG/DL (1.5-2.4); POTASSIUM 3.9 MMOL/L (3.5-5.1); SODIUM 141 MMOL/L (135-145); TOTAL CARBON DIOXIDE 22.2 MMOL/L (24-32); eGFR 56 ML/MIN
[2018-03-07 07:26] LABS: ANISOCYTOSIS 3+; PLATELET ESTIMATE NORMAL
[2018-03-07] MEDS ORDERED: enoxaparin 80mg/0.8ml syringe SUBCUT SCH (08:00)
[2018-03-07] MEDS: K and/or MAG REPLACEMENT MC SCH (08:00)
[2018-03-07] MEDS: docusate sod 100mg capsule PO SCH ×2 (09:08→20:20)
[2018-03-07] MEDS: atorvastatin 20mg tablet PO SCH (09:08)
[2018-03-07] MEDS: pantoprazole 40mg Tablet.DR PO SCH (09:09)
[2018-03-07] MEDS: zinc sulfate 220mg capsule PO SCH ×2 (09:10→20:20)
[2018-03-07] MEDS: duloxetine 30mg CAPSULE.DR PO SCH ×2 (09:10→20:20)
[2018-03-07] MEDS: lactobacillus rhamnosus 10,000 MMU CELLS/CAPSULE PO SCH ×2 (09:11→20:20)
[2018-03-07] MEDS: predniSONE 5mg tablet PO SCH (09:11)
[2018-03-07] MEDS: levoTHYROXINE 100mcg tablet PO SCH (09:12)
[2018-03-07] MEDS: atenolol 25mg tablet PO SCH (09:13)
[2018-03-07] MEDS: CefTRIAXone 2gm/D5W 50ml 50 ML IV SCH (09:14)
[2018-03-07] MEDS: normal saline 1000ml 1,000 ML IV SCH (09:26)
[2018-03-07] MEDS: naproxen 500mg tablet PO SCH ×2 (09:50→17:08)
[2018-03-07 11:00] VITALS: BP 132/67
[2018-03-07] MEDS ORDERED: morphine 2 MG/ML inj. syringe IV ONE (11:20)
[2018-03-07] MEDS: fentaNYL 25MCG/hour patch.TD72 TD SCH (14:20)
[2018-03-07] MEDS: fentaNYL 75 MCG/hour patch.TD72 TD SCH (14:20)
[2018-03-07] MEDS ORDERED: non-formulary drug (Fentanyl Patch 100 MCG* (Duragesic 100 MCG*) 1 PATCH) TD SCH (14:40)
[2018-03-07 15:00] VITALS: BP 130/68
[2018-03-07] MEDS: ALPRAZolam 0.5mg tablet PO PRN (15:08)
[2018-03-07] MEDS: metFORMIN 500mg tablet PO SCH (17:11)
[2018-03-07 19:00] VITALS: BP 144/68
[2018-03-07] MEDS: morphine ER 15mg tablet PO SCH (20:20)
[2018-03-07] MEDS: polyethylene glycol 3350 17gm powd pack PO SCH (20:21)
[2018-03-07] MEDS: insulin glargine (Lantus) pen - multi-dose SQ SCH (20:22)
[2018-03-08] MEDS: morphine 2 MG/ML inj. syringe IV PRN ×3 (01:39→21:19)
[2018-03-08] MEDS: normal saline 1000ml 1,000 ML IV SCH ×3 (02:00→15:04)
[2018-03-08 06:00] VITALS: BP 126/61
[2018-03-08 06:06] LABS: BASOPHILS % (AUTO) 0.2 % (0-1); EOSINOPHILS # (AUTO) 0.4 X10'3 (0-0.9); EOSINOPHILS % (AUTO) 4.6 % (0-6); HEMATOCRIT 28.5 % (35.0-45.0); HEMOGLOBIN 8.5 g/dl (12.0-16.0); LYMPHOCYTES # (AUTO) 2.2 X10'3 (1.1-4.8); LYMPHOCYTES % (AUTO) 23.2 % (21-51); MEAN CORPUSCULAR HEMOGLOBIN 22.3 PG (27.0-31.0); MEAN CORPUSCULAR HGB CONC 29.9 % (33.0-36.5); MEAN CORPUSCULAR VOLUME 74.6 FL (78-98); MEAN PLATELET VOLUME 7.2 FL (7.4-10.4); MONOCYTES # (AUTO) 0.7 X10'3 (0-0.9); MONOCYTES % (AUTO) 7.5 % (2-12); NEUTROPHILS # (AUTO) 6.1 X10'3 (1.8-7.7); NEUTROPHILS % (AUTO) 64.5 % (42-75); PLATELET COUNT 448 X10'3 (140-440); RED BLOOD COUNT 3.82 X10'6 (4.20-5.60); RED CELL DISTRIBUTION WIDTH 23.2 % (11.5-14.5); WHITE BLOOD COUNT 9.5 X10'3 (4.5-11.0)
[2018-03-08 06:32] LABS: ALBUMIN 1.9 G/DL (3.4-5.0); ANION GAP 8 (8-16); BLOOD UREA NITROGEN 29 MG/DL (7-18); BUN/CREATININE RATIO 31.9 (6.6-38.0); CALCIUM 9.2 MG/DL (8.5-10.1); CHLORIDE 110 MMOL/L (99-107); CREATININE 0.91 MG/DL (0.40-0.90); GLUCOSE 113 MG/DL (70-104); MAGNESIUM 1.7 MG/DL (1.5-2.4); POTASSIUM 4.2 MMOL/L (3.5-5.1); SODIUM 141 MMOL/L (135-145); TOTAL CARBON DIOXIDE 22.7 MMOL/L (24-32); eGFR 60 ML/MIN
[2018-03-08 07:48] LABS: ANISOCYTOSIS 3+; PLATELET ESTIMATE INCREASED
[2018-03-08] MEDS: K and/or MAG REPLACEMENT MC SCH (08:00)
[2018-03-08] MEDS: lactobacillus rhamnosus 10,000 MMU CELLS/CAPSULE PO SCH ×2 (08:12→19:30)
[2018-03-08] MEDS: docusate sod 100mg capsule PO SCH ×2 (08:13→19:30)
[2018-03-08] MEDS: atorvastatin 20mg tablet PO SCH (08:14)
[2018-03-08] MEDS: morphine ER 15mg tablet PO SCH ×2 (08:15→19:30)
[2018-03-08] MEDS: duloxetine 30mg CAPSULE.DR PO SCH ×2 (08:15→19:30)
[2018-03-08] MEDS: metFORMIN 500mg tablet PO SCH ×2 (08:15→16:41)
[2018-03-08] MEDS: naproxen 500mg tablet PO SCH ×2 (08:16→16:41)
[2018-03-08] MEDS: ascorbic acid 500mg tablet PO SCH (08:16)
[2018-03-08] MEDS: pantoprazole 40mg Tablet.DR PO SCH (08:17)
[2018-03-08] MEDS: predniSONE 5mg tablet PO SCH (08:17)
[2018-03-08] MEDS: levoTHYROXINE 100mcg tablet PO SCH (08:18)
[2018-03-08] MEDS: zinc sulfate 220mg capsule PO SCH ×2 (08:18→19:30)
[2018-03-08] MEDS: CefTRIAXone 2gm/D5W 50ml 50 ML IV SCH (08:19)
[2018-03-08] MEDS: atenolol 25mg tablet PO SCH (08:22)
[2018-03-08 11:00] VITALS: BP 131/50
[2018-03-08 15:00] VITALS: BP 129/53
[2018-03-08 19:00] VITALS: BP 122/47
[2018-03-08] MEDS: insulin glargine (Lantus) pen - multi-dose SQ SCH (21:00)
[2018-03-08] MEDS: polyethylene glycol 3350 17gm powd pack PO SCH (21:11)
[2018-03-08 23:00] VITALS: BP 168/78
[2018-03-09] MEDS: normal saline 1000ml 1,000 ML IV SCH ×3 (02:30→14:40)
[2018-03-09 03:00] VITALS: BP 153/71
[2018-03-09] MEDS: morphine 2 MG/ML inj. syringe IV PRN ×3 (03:05→19:06)
[2018-03-09] MEDS ORDERED: VANCOMYCIN LEVEL IV NR (03:30)
[2018-03-09 06:44] LABS: BASOPHILS % (AUTO) 0.3 % (0-1); EOSINOPHILS # (AUTO) 0.5 X10'3 (0-0.9); EOSINOPHILS % (AUTO) 5.6 % (0-6); HEMATOCRIT 28.3 % (35.0-45.0); HEMOGLOBIN 8.6 g/dl (12.0-16.0); LYMPHOCYTES # (AUTO) 2.1 X10'3 (1.1-4.8); LYMPHOCYTES % (AUTO) 22.2 % (21-51); MEAN CORPUSCULAR HEMOGLOBIN 22.4 PG (27.0-31.0); MEAN CORPUSCULAR HGB CONC 30.4 % (33.0-36.5); MEAN CORPUSCULAR VOLUME 73.8 FL (78-98); MONOCYTES # (AUTO) 0.5 X10'3 (0-0.9); MONOCYTES % (AUTO) 5.3 % (2-12); NEUTROPHILS # (AUTO) 6.4 X10'3 (1.8-7.7); NEUTROPHILS % (AUTO) 66.6 % (42-75); PLATELET COUNT 433 X10'3 (140-440); RED BLOOD COUNT 3.84 X10'6 (4.20-5.60); RED CELL DISTRIBUTION WIDTH 22.9 % (11.5-14.5); WHITE BLOOD COUNT 9.7 X10'3 (4.5-11.0)
[2018-03-09 06:53] LABS: ANION GAP 10 (8-16); BLOOD UREA NITROGEN 21 MG/DL (7-18); BUN/CREATININE RATIO 31.3 (6.6-38.0); CALCIUM 9.2 MG/DL (8.5-10.1); CHLORIDE 110 MMOL/L (99-107); CREATININE 0.67 MG/DL (0.40-0.90); GLUCOSE 123 MG/DL (70-104); MAGNESIUM 1.6 MG/DL (1.5-2.4); POTASSIUM 4.1 MMOL/L (3.5-5.1); SODIUM 140 MMOL/L (135-145); TOTAL CARBON DIOXIDE 20.5 MMOL/L (24-32); eGFR 86 ML/MIN
[2018-03-09 07:30] VITALS: BP 161/72
[2018-03-09 07:46] LABS: VANCOMYCIN,TROUGH 22.9 UG/ML (6.0-14.0)
[2018-03-09] MEDS: pantoprazole 40mg Tablet.DR PO SCH (07:49)
[2018-03-09] MEDS: duloxetine 30mg CAPSULE.DR PO SCH ×2 (07:49→20:59)
[2018-03-09] MEDS: docusate sod 100mg capsule PO SCH ×2 (07:49→20:59)
[2018-03-09] MEDS: naproxen 500mg tablet PO SCH ×2 (07:49→16:51)
[2018-03-09] MEDS: lactobacillus rhamnosus 10,000 MMU CELLS/CAPSULE PO SCH ×2 (07:49→20:59)
[2018-03-09] MEDS: levoTHYROXINE 100mcg tablet PO SCH (07:49)
[2018-03-09] MEDS: morphine ER 15mg tablet PO SCH ×2 (07:49→20:59)
[2018-03-09] MEDS: predniSONE 5mg tablet PO SCH (07:49)
[2018-03-09] MEDS: atorvastatin 20mg tablet PO SCH (07:49)
[2018-03-09] MEDS: zinc sulfate 220mg capsule PO SCH ×2 (07:49→20:59)
[2018-03-09] MEDS: metFORMIN 500mg tablet PO SCH ×2 (07:49→16:51)
[2018-03-09] MEDS: CefTRIAXone 2gm/D5W 50ml 50 ML IV SCH (07:50)
[2018-03-09] MEDS: K and/or MAG REPLACEMENT MC SCH (07:50)
[2018-03-09] MEDS: ascorbic acid 500mg tablet PO SCH (07:50)
[2018-03-09 08:00] LABS: TOTAL CELLS COUNTED 100
[2018-03-09 08:01] LABS: ANISOCYTOSIS 3+; HYPOCHROMASIA 1+; PLATELET ESTIMATE NORMAL; POLYCHROMASIA 1+; TEAR DROP CELLS FEW; TOXIC GRANULATION 1+
[2018-03-09 08:02] LABS: ELLIPTOCYTES FEW
[2018-03-09] MEDS: ondansetron/PF 4mg/2ml inj IV PRN (09:18)
[2018-03-09] MEDS: atenolol 25mg tablet PO SCH (11:31)
[2018-03-09 12:27] VITALS: BP 129/61
[2018-03-09 16:27] VITALS: BP 114/47
[2018-03-09] MEDS: vancomycin inj 1,250 MG in normal saline 250ml IV soln 250 ML IV SCH (16:53)
[2018-03-09 19:30] VITALS: BP 124/52
[2018-03-09] MEDS: polyethylene glycol 3350 17gm powd pack PO SCH (21:00)
[2018-03-09] MEDS: insulin glargine (Lantus) pen - multi-dose SQ SCH (21:31)
[2018-03-09 23:30] VITALS: BP 151/67
[2018-03-10] MEDS: ondansetron/PF 4mg/2ml inj IV PRN ×2 (00:58→21:26)
[2018-03-10 04:00] VITALS: BP 141/59
[2018-03-10] MEDS: vancomycin inj 1,250 MG in normal saline 250ml IV soln 250 ML IV SCH ×2 (04:25→16:41)
[2018-03-10 06:00] VITALS: BP 144/62
[2018-03-10] MEDS: levoTHYROXINE 100mcg tablet PO SCH (07:20)
[2018-03-10] MEDS: metFORMIN 500mg tablet PO SCH ×2 (07:20→16:41)
[2018-03-10] MEDS: pantoprazole 40mg Tablet.DR PO SCH (07:20)
[2018-03-10] MEDS: naproxen 500mg tablet PO SCH ×2 (07:20→16:41)
[2018-03-10] MEDS: ascorbic acid 500mg tablet PO SCH (07:21)
[2018-03-10] MEDS: CefTRIAXone 2gm/D5W 50ml 50 ML IV SCH (07:21)
[2018-03-10] MEDS: lactobacillus rhamnosus 10,000 MMU CELLS/CAPSULE PO SCH ×2 (07:21→20:16)
[2018-03-10] MEDS: atorvastatin 20mg tablet PO SCH (07:21)
[2018-03-10] MEDS: docusate sod 100mg capsule PO SCH ×2 (07:21→20:16)
[2018-03-10] MEDS: morphine ER 15mg tablet PO SCH ×2 (07:21→20:16)
[2018-03-10] MEDS: zinc sulfate 220mg capsule PO SCH ×2 (07:21→20:17)
[2018-03-10] MEDS: atenolol 25mg tablet PO SCH (07:21)
[2018-03-10] MEDS: normal saline 1000ml 1,000 ML IV SCH ×2 (07:21→20:21)
[2018-03-10] MEDS: predniSONE 5mg tablet PO SCH (07:21)
[2018-03-10] MEDS: duloxetine 30mg CAPSULE.DR PO SCH ×2 (07:21→20:16)
[2018-03-10 07:44] LABS: BASOPHILS % (AUTO) 0.3 % (0-1); EOSINOPHILS # (AUTO) 0.5 X10'3 (0-0.9); EOSINOPHILS % (AUTO) 5.1 % (0-6); HEMATOCRIT 30.1 % (35.0-45.0); HEMOGLOBIN 8.9 g/dl (12.0-16.0); LYMPHOCYTES # (AUTO) 2.3 X10'3 (1.1-4.8); LYMPHOCYTES % (AUTO) 21.9 % (21-51); MEAN CORPUSCULAR HGB CONC 29.6 % (33.0-36.5); MEAN CORPUSCULAR VOLUME 74.5 FL (78-98); MEAN PLATELET VOLUME 7.1 FL (7.4-10.4); MONOCYTES # (AUTO) 0.5 X10'3 (0-0.9); MONOCYTES % (AUTO) 5.1 % (2-12); NEUTROPHILS # (AUTO) 7.2 X10'3 (1.8-7.7); NEUTROPHILS % (AUTO) 67.6 % (42-75); PLATELET COUNT 446 X10'3 (140-440); RED BLOOD COUNT 4.04 X10'6 (4.20-5.60); RED CELL DISTRIBUTION WIDTH 23.6 % (11.5-14.5); WHITE BLOOD COUNT 10.6 X10'3 (4.5-11.0)
[2018-03-10 07:57] LABS: ALBUMIN 2.1 G/DL (3.4-5.0); ANION GAP 8 (8-16); BLOOD UREA NITROGEN 15 MG/DL (7-18); BUN/CREATININE RATIO 24.6 (6.6-38.0); CALCIUM 9.1 MG/DL (8.5-10.1); CHLORIDE 111 MMOL/L (99-107); CREATININE 0.61 MG/DL (0.40-0.90); GLUCOSE 137 MG/DL (70-104); MAGNESIUM 1.6 MG/DL (1.5-2.4); SODIUM 143 MMOL/L (135-145); TOTAL CARBON DIOXIDE 23.6 MMOL/L (24-32); eGFR > 90 ML/MIN
[2018-03-10] MEDS: K and/or MAG REPLACEMENT MC SCH (08:00)
[2018-03-10 08:43] LABS: ANISOCYTOSIS 3+; HYPOCHROMASIA 1+; PLATELET ESTIMATE INCREASED
[2018-03-10 08:44] LABS: POLYCHROMASIA 1+
[2018-03-10 11:00] VITALS: BP 143/57
[2018-03-10] MEDS: fentaNYL 75 MCG/hour patch.TD72 TD SCH (13:15)
[2018-03-10] MEDS: fentaNYL 25MCG/hour patch.TD72 TD SCH (13:15)
[2018-03-10 15:00] VITALS: BP 137/53
[2018-03-10 19:00] VITALS: BP 148/71
[2018-03-10] MEDS: polyethylene glycol 3350 17gm powd pack PO SCH (20:16)
[2018-03-10] MEDS: insulin glargine (Lantus) pen - multi-dose SQ SCH (21:00)
[2018-03-10] MEDS: nitrofuran/nitrofuran macrocrysal 100 MG capsule PO SCH (22:48)
[2018-03-10 23:00] VITALS: BP 150/73
[2018-03-11 03:00] VITALS: BP 169/79
[2018-03-11] MEDS: ALPRAZolam 0.5mg tablet PO PRN (03:13)
[2018-03-11] MEDS ORDERED: VANCOMYCIN LEVEL IV ONE (03:30)
[2018-03-11] MEDS: normal saline 1000ml 1,000 ML IV SCH ×3 (04:29→17:22)
[2018-03-11 06:00] VITALS: BP 157/70
[2018-03-11] MEDS: K and/or MAG REPLACEMENT MC SCH (07:07)
[2018-03-11] MEDS: metFORMIN 500mg tablet PO SCH ×2 (07:20→17:21)
[2018-03-11] MEDS: levoTHYROXINE 100mcg tablet PO SCH (07:20)
[2018-03-11] MEDS: zinc sulfate 220mg capsule PO SCH ×2 (07:20→20:25)
[2018-03-11] MEDS: atenolol 25mg tablet PO SCH (07:21)
[2018-03-11] MEDS: lactobacillus rhamnosus 10,000 MMU CELLS/CAPSULE PO SCH ×2 (07:22→20:25)
[2018-03-11] MEDS: atorvastatin 20mg tablet PO SCH (07:23)
[2018-03-11] MEDS: ascorbic acid 500mg tablet PO SCH (07:23)
[2018-03-11] MEDS: morphine ER 15mg tablet PO SCH ×2 (07:24→20:25)
[2018-03-11] MEDS: naproxen 500mg tablet PO SCH ×2 (07:24→17:21)
[2018-03-11] MEDS: nitrofuran/nitrofuran macrocrysal 100 MG capsule PO SCH ×2 (07:25→17:21)
[2018-03-11] MEDS: predniSONE 5mg tablet PO SCH (07:25)
[2018-03-11] MEDS: duloxetine 30mg CAPSULE.DR PO SCH ×2 (07:25→20:25)
[2018-03-11] MEDS: docusate sod 100mg capsule PO SCH ×2 (07:27→20:25)
[2018-03-11] MEDS: pantoprazole 40mg Tablet.DR PO SCH (07:27)
[2018-03-11] MEDS: CefTRIAXone 2gm/D5W 50ml 50 ML IV SCH (07:27)
[2018-03-11 11:00] VITALS: BP 142/61
[2018-03-11] MEDS: morphine 2 MG/ML inj. syringe IV PRN (11:52)
[2018-03-11 15:00] VITALS: BP 144/59
[2018-03-11 18:00] VITALS: BP 149/63
[2018-03-11] MEDS: polyethylene glycol 3350 17gm powd pack PO SCH (20:24)
[2018-03-11] MEDS: insulin glargine (Lantus) pen - multi-dose SQ SCH (21:00)
[2018-03-11] MEDS: ondansetron/PF 4mg/2ml inj IV PRN (21:14)
[2018-03-11 22:00] VITALS: BP 124/75
[2018-03-12 02:00] VITALS: BP 154/64
[2018-03-12] MEDS: normal saline 1000ml 1,000 ML IV SCH (03:17)
[2018-03-12] MEDS: ALPRAZolam 0.5mg tablet PO PRN (03:19)
[2018-03-12 07:00] VITALS: BP 154/65
[2018-03-12] MEDS: ascorbic acid 500mg tablet PO SCH (07:50)
[2018-03-12] MEDS: CefTRIAXone 2gm/D5W 50ml 50 ML IV SCH (07:50)
[2018-03-12] MEDS: morphine ER 15mg tablet PO SCH (07:50)
[2018-03-12] MEDS: metFORMIN 500mg tablet PO SCH (07:50)
[2018-03-12] MEDS: predniSONE 5mg tablet PO SCH (07:51)
[2018-03-12] MEDS: lactobacillus rhamnosus 10,000 MMU CELLS/CAPSULE PO SCH (07:51)
[2018-03-12] MEDS: levoTHYROXINE 100mcg tablet PO SCH (07:51)
[2018-03-12] MEDS: atorvastatin 20mg tablet PO SCH (07:51)
[2018-03-12] MEDS: duloxetine 30mg CAPSULE.DR PO SCH (07:51)
[2018-03-12] MEDS: pantoprazole 40mg Tablet.DR PO SCH (07:51)
[2018-03-12] MEDS: atenolol 25mg tablet PO SCH (07:52)
[2018-03-12] MEDS: zinc sulfate 220mg capsule PO SCH (07:56)
[2018-03-12] MEDS: naproxen 500mg tablet PO SCH (08:02)
[2018-03-12] MEDS: nitrofuran/nitrofuran macrocrysal 100 MG capsule PO SCH (08:30)
[2018-03-12 11:00] VITALS: BP 135/53
[2018-03-12] MEDS ORDERED: NITR100C11 PO (12:33)
[2018-03-12] MEDS ORDERED: LACT1CAP26 PO (12:33)
[2018-03-12] MEDS ORDERED: CEFD300C3 PO (12:33)
[2018-03-12] MEDS: docusate sod 100mg capsule PO SCH (13:26)
== END 2018-03-12 16:46 | disposition home health service (06) | DRG 871 ==
LOC: ER 12:31 → ED HOLD 17:04 → PCU 3S 19:27
PROVIDERS: ADMIT Internal Medicine; ATTEND Family Medicine
PROC: 5A09357 Assistance with Respiratory Ventilation, Less than 24 Consecutive Hours, Continuous Positive Airway Pressure (ICD-10-PCS; principal; 2018-03-05)
PROC: 5A09357 Assistance with Respiratory Ventilation, Less than 24 Consecutive Hours, Continuous Positive Airway Pressure (ICD-10-PCS; 2018-03-06)
PROC: 5A09357 Assistance with Respiratory Ventilation, Less than 24 Consecutive Hours, Continuous Positive Airway Pressure (ICD-10-PCS; 2018-03-07)
DX: A41.9 Sepsis, unspecified organism (principal); G93.41 Metabolic encephalopathy; J96.00 Acute respiratory failure, unspecified whether with hypoxia or hypercapnia; N39.0 Urinary tract infection, site not specified; E87.2 Acidosis; C64.9 Malignant neoplasm of unspecified kidney, except renal pelvis; R65.20 Severe sepsis without septic shock; E87.5 Hyperkalemia; E03.9 Hypothyroidism, unspecified; E78.5 Hyperlipidemia, unspecified; E86.0 Dehydration; B95.62 Methicillin resistant Staphylococcus aureus infection as the cause of diseases classified elsewhere; I11.0 Hypertensive heart disease with heart failure; I50.9 Heart failure, unspecified; L89.159 Pressure ulcer of sacral region, unspecified stage; G89.29 Other chronic pain; E11.9 Type 2 diabetes mellitus without complications; Z96.653 Presence of artificial knee joint, bilateral; F41.9 Anxiety disorder, unspecified; M19.90 Unspecified osteoarthritis, unspecified site; M54.9 Dorsalgia, unspecified; M48.00 Spinal stenosis, site unspecified; Z51.5 Encounter for palliative care; Z66 Do not resuscitate; Z74.01 Bed confinement status; Z90.710 Acquired absence of both cervix and uterus; Z88.0 Allergy status to penicillin; Z88.8 Allergy status to other drugs, medicaments and biological substances; Z79.899 Other long term (current) drug therapy
CPT/HCPCS: 36415; 36600; 70450; 71045; 80048; 80053; 80202; 80305; 80320; 81001; 82140; 82803; 82948; 83036; 83605; 83735; 83880; 84443; 84484; 85018; 85025; 85610; 85730; 87040; 87070; 87077; 87088; 93005; 94660; 94760; 96361; 96365; 99285; G0378; J0696; J1644; J1815; J2270; J2405; J3370; J3490; J7030; J7512